=== PATIENT | female | born 1960 | race Two or more races ===

== ENCOUNTER 2016-05-07 23:43 | Emergency (ER) | payer OTHER, MEDICARE, MEDICAID ==
[~2016-05-07] VITALS: Ht 170.2 cm; Wt 45.4 kg
[2016-05-08 00:04] VITALS: BP 154/85
== END 2016-05-08 00:13 | disposition home or self-care (01) ==
LOC: ER 23:45
DX: Z00.8 Encounter for other general examination (principal); I25.2 Old myocardial infarction; Z95.811 Presence of heart assist device
CPT/HCPCS: 99283; A4606; Z7610